=== PATIENT | female | born 1990 | race African-American/Black ===

== ENCOUNTER 2018-11-09 17:36 | Emergency (ER) | payer SELFPAY ==
[2018-11-09] MEDS ORDERED: LIDOCAINE 1% INJ-PF (10 MG/ML) 30 ML SDV INJ ONE (18:22)
--- NOTE | 2018-11-09 18:25 | ER Document Report ---
ED Medical Screen (RME) - General Chief Complaint: Insect Bite Stated Complaint: POSSIBLE BUG BITE Time Seen by Provider: 11/09/18 18:19 TRAVEL OUTSIDE OF THE [place] IN LAST 30 DAYS: No - HPI Notes: 11/09/18 18:23 Patient is a 28-year-old female with a history of type 2 diabetes who presents emergency department complaining of swollen painful area to the medial posterior proximal thigh that has been present for the past 2 to 3 days. She has not noticed any discharge or witness any insect biting her. She is still eating and drinking without difficulty. She is urinating normally and having normal bowel movements. Denies HAINES, fever, neck pain, URI, CP, SOB, Abd pain. I have treated and performed a rapid initial assessment of this patient. A comprehensive ED assessment and evaluation of the patient, analysis of test results and completion of medical decision making process will be conducted by additional ED providers. PHYSICAL EXAMINATION: GENERAL: Well-appearing, well-nourished and in no acute distress. A&Ox4. Answers questions appropriately. Skin: Prox posteromedial thigh: there is a fluctuant, mildly erythemic area noted with induration and tenderness. No active purulence or streaks. - Related Data Allergies/Adverse Reactions: latex [Latex] Allergy (Verified 11/09/18 17:45) Past Medical History - Social History Chew tobacco use (# tins/day): No Frequency of alcohol use: None Drug Abuse: None Endocrine Medical History: Reports: Hx Diabetes Mellitus Type 2 Renal/ Medical History: Denies: Hx Peritoneal Dialysis - Immunizations Hx Diphtheria, Pertussis, Tetanus Vaccination: No Physical Exam - Vital signs Vitals: Temp Pulse Resp BP Pulse Ox 98.7 F 95 18 139/75 H 96 11/09/18 18:02 11/09/18 18:02 11/09/18 18:02 11/09/18 18:02 11/09/18 18:02 Course - Vital Signs Vital signs: Temp Pulse Resp BP Pulse Ox 98.7 F 95 18 139/75 H 96 11/09/18 18:02 11/09/18 18:02 11/09/18 18:02 11/09/18 18:02 11/09/18 18:02
--- NOTE | 2018-11-09 19:39 | ER Document Report ---
HPI - HPI Patient complains to provider of: Abscess to leg Onset: Other - 3-days Onset/Duration: Worse Pain Level: 5 Context: She complains of abscess to left thigh for the past 3 days. Patient denies any fever. Patient also states that she is diabetic and has not been on anything to manage her diabetes. Patient states that she gets frequent yeast infections and is concerned that this may be attributed to this. Patient states that she is not currently sexually active and does not have any concerns about possible sexually transmitted infection at this time. Associated Symptoms: Other - Abscess to leg, vaginal discharge. denies: Fever Exacerbated by: Denies Relieved by: Denies Similar symptoms previously: Yes Recently seen / treated by doctor: No - ROS ROS below otherwise negative: Yes Systems Reviewed and Negative: Yes All other systems reviewed and negative - CONSTITUTIONAL Constitutional: DENIES: Fever - EENT EENT: DENIES: Sore Throat - RESPIRATORY Respiratory: DENIES: Trouble Breathing, Coughing - GASTROINTESTINAL Gastrointestinal: DENIES: Abdominal Pain, Nausea - URINARY Urinary: DENIES: Dysuria - REPRODUCTIVE Reproductive: REPORTS: Abnormal bleeding / discharge. DENIES: : - MUSCULOSKELETAL Musculoskeletal: REPORTS: Extremity pain - Left thigh - DERM Skin Color: Normal Notes: Abscess to left thigh <LUIS E SERNA - Last Filed: 11/09/18 21:26> <REI HIGGINS - Last Filed: 11/09/18 23:41> - HPI Time Seen by Provider: 11/09/18 18:19 Past Medical History - General Information source: Patient - Social History Smoking Status: Never Smoker Chew tobacco use (# tins/day): No Frequency of alcohol use: None Drug Abuse: None Occupation: [employer] Lives with: Family Family History: Reviewed & Not Pertinent Patient has suicidal ideation: No Patient has homicidal ideation: No Endocrine Medical History: Reports: Hx Diabetes Mellitus Type 2 Renal/ Medical History: Denies: Hx Peritoneal Dialysis Surgical Hx: Negative - Immunizations Hx Diphtheria, Pertussis, Tetanus Vaccination: No <LUIS E SERNA - Last Filed: 11/09/18 21:26> Vertical Provider Document - CONSTITUTIONAL Agree With Documented VS: Yes Exam Limitations: No Limitations General Appearance: WD/WN, No Apparent Distress - INFECTION CONTROL TRAVEL OUTSIDE OF THE [place] IN LAST 30 DAYS: No - HEENT HEENT: Atraumatic, Normocephalic - NECK Neck: Normal Inspection - RESPIRATORY Respiratory: No Respiratory Distress - BACK Back: Normal Inspection - MUSCULOSKELETAL/EXTREMETIES Musculoskeletal/Extremeties: [place] - NEURO Level of Consciousness: Awake, Alert, Appropriate Motor/Sensory: No Motor Deficit - DERM Integumentary: Warm, Dry, Abscess - Abscess to medial left thigh. <LUIS E SERNA - Last Filed: 11/09/18 21:26> Course - Re-evaluation Re-evalutation: 11/09/18 20:58 Report and handoff given to Sue MARTINEZ 11/09/18 21:26 - Vital Signs Vital signs: Temp Pulse Resp BP Pulse Ox 98.7 F 95 18 139/75 H 96 11/09/18 18:02 11/09/18 18:02 11/09/18 18:02 11/09/18 18:02 11/09/18 18:02 - Laboratory Result Diagrams: 11/09/18 20:10 11/09/18 20:10 <LUIS E SERNA - Last Filed: 11/09/18 21:26> - Re-evaluation Re-evalutation: 11/09/18 23:37 I assumed patient care from Justa Eleazar. She indicated that we were monitoring her blood sugars and labs to make sure that she was doing well with the fluid flush and the insulin subcu. Current Accu-Chek is 269 so indicating patient is going down from the 500 she started it. Patient also had an I&D drainage we will place her on Bactrim for that she had a yeast infection were placed on Diflucan for that she had bacterial vaginosis we are placing her on Flagyl for that and I am putting her on metformin starting out slow and then tapering up to thousand milligrams twice a day. This will give her a chance to follow-up with her primary care provider. I have had a long talk with her in front of her family about monitoring her diet and how to adjust it. Hopefully she will have listen to us. I have instructed her to come back if it does not appear to be healing well. And to use warm moist compresses. - Vital Signs Vital signs: Temp Pulse Resp BP Pulse Ox 98.7 F 95 18 139/75 H 96 11/09/18 18:02 11/09/18 18:02 11/09/18 18:02 11/09/18 18:02 11/09/18 18:02 - Laboratory Result Diagrams: 11/09/18 20:10 11/09/18 20:10 Laboratory results interpreted by me: 11/09/18 11/09/18 11/09/18 19:52 20:10 20:10 MCH 26.6 L RDW 14.6 H Sodium 133.2 L Chloride 92 L Glucose 515 H* POC Glucose 466 H* Alkaline Phosphatase 149 H Urine Glucose (UA) 11/09/18 21:05 MCH RDW Sodium Chloride Glucose POC Glucose Alkaline Phosphatase Urine Glucose (UA) >=500 H <REI HIGGINS - Last Filed: 11/09/18 23:41> Procedures - Incision and Drainage Left Thigh Type: Simple Anesthetic type: 1% Lidocaine Blade size: 11 I&D procedure: Betadine prep applied Incision Method: Incision made by scalpel Amount/type of drainage: small amount of purulent drainage <LUIS E SERNA - Last Filed: 11/09/18 21:26> Discharge <LUIS E SERNA - Last Filed: 11/09/18 21:26> <REI HIGGINS - Last Filed: 11/09/18 23:41> - Discharge Clinical Impression: Abscess, Encounter for incision and drainage procedure, Yeast vaginitis, Bacterial vaginosis, Hyperglycemia Condition: Stable Disposition: HOME, SELF-CARE Instructions: Abscess ([facility]), Post Incision and Drainage, Trimethoprim-Sulfa ([facility]), Vaginal Yeast Infection ([facility]) Additional Instructions: Home and rest. Medication as prescribed. As we discussed you will need to follow-up with a primary care provider and the [facility] may be 1 of those that may help you out. I am giving the information to them listed in the brochure. It is important to monitor your diet very closely. Is also important that you use warm moist compresses 3-4 times a day on the abscess that she opened up for you. This is a wash rag as warm as you can stand it from the sink please do not put in a microwave. Highly suggest also that you monitor your diet watch the input that you do have with sugary substances like sodas and cakes and cookies etc. Start monitoring your diet and watch what you eat and you should help with your diabetes. As of informed you this is a very serious diagnosis now that you have reached the 500 [address] and is something that you must with all consciousness make an effort to fight. This is a deadly disease unless you find it. You may always return to ER for recheck if you need to. Prescriptions: Fluconazole [Diflucan] 150 mg PO ASDIR PRN #2 tablet PRN Reason: Metformin HCl [Glucophage 500 mg Tablet] 500 mg PO ASDIR PRN #100 tablet PRN Reason: Metronidazole [Flagyl 500 mg Tablet] 500 mg PO BID 7 Days #14 tablet Sulfamethoxazole/Trimethoprim [Bactrim Ds Tablet] 1 each PO BID #20 tablet Forms: Elevated Blood Pressure, Smoking Cessation Education, Return to School, Return to Work Referrals: [facility] [NO LOCAL MD] - Follow up as needed
[2018-11-09] MEDS ORDERED: NORMAL SALINE 1000 ML 2,000 ML IV ONE (19:56)
[2018-11-09 20:16] LABS: BACTERIA (WET MOUNT) 4+ BACTERIA SEEN; EPITHELIALS (WET MOUNT) 3+ EPITHELIALS SEEN; T.VAGINALIS (WET MOUNT) NO TRICHOMONAS SEEN; WBCS (WET MOUNT) 3+ WBCS SEEN; YEAST (WET MOUNT) BUDDING YEAST SEEN
[2018-11-09 20:40] LABS: ABSOLUTE EOSINOPHILS # (AUTO) 0.1 10^3/uL (0.0-0.6); ABSOLUTE MONOCYTES (AUTO) 0.4 10^3/uL (0.1-1.4); ABSOLUTE NEUT (AUTO) 4.2 10^3/uL (1.7-8.2); BASOPHILS % (AUTO) 0.4 % (0-2); EOSINOPHILS % (AUTO) 1.1 % (0-6); HEMATOCRIT 41.6 % (36.0-47.0); HEMOGLOBIN 13.5 g/dL (12.0-15.5); LYMPHOCYTES % (AUTO) 17.4 % (13-45); MEAN CORPUSCULAR HEMOGLOBIN 26.6 pg (27.0-33.4); MEAN CORPUSCULAR HGB CONC 32.6 g/dL (32.0-36.0); MEAN CORPUSCULAR VOLUME 82 fl (80-97); MONOCYTES % (AUTO) 7.4 % (3-13); PLATELET COUNT 229 10^3/uL (150-450); RED BLOOD COUNT 5.09 10^6/uL (3.72-5.28); RED CELL DISTRIBUTION WIDTH 14.6 % (11.5-14.0); SEGMENTED NEUTROPHILS % (AUTO) 73.7 % (42-78); TOTAL CELLS COUNTED % (AUTO) 100 %; WHITE BLOOD COUNT 5.7 10^3/uL (4.0-10.5)
[2018-11-09 20:50] LABS: ALANINE AMINOTRANSFERASE 25 U/L (9-52); ALKALINE PHOSPHATASE 149 U/L (38-126); ANION GAP 11 (5-19); ASPARTATE AMINO TRANSFERASE 14 U/L (14-36); BILIRUBIN,DIRECT 0.2 mg/dL (0.0-0.4); BILIRUBIN,TOTAL 0.4 mg/dL (0.2-1.3); BLOOD UREA NITROGEN 10 mg/dL (7-20); CALCIUM 10.1 mg/dL (8.4-10.2); CARBON DIOXIDE 30 mmol/L (22-30); CHLORIDE 92 mmol/L (98-107); POTASSIUM 4.7 mmol/L (3.6-5.0); SODIUM 133.2 mmol/L (137-145); TOTAL PROTEIN 6.9 g/dL (6.3-8.2)
[2018-11-09 21:05] LABS: GLUCOSE 515 mg/dL (75-110)
[2018-11-09 21:20] LABS: VENOUS BLOOD HCO3 29.5 mmol/L (20-32); VENOUS BLOOD PCO2 52.6 mmHg (35-63); VENOUS BLOOD PH 7.37 (7.30-7.42)
[2018-11-09] MEDS ORDERED: FLUCONAZOLE 100 MG TABLET PO ONE (21:24)
[2018-11-09] MEDS ORDERED: INSULIN REG, HUMAN 100 UNIT/ML 3 ML VIAL (PYX) SUBCUT ONE (21:24)
[2018-11-09 21:35] LABS: APPEARANCE,URINE CLEAR; BILIRUBIN,URINE NEGATIVE (NEGATIVE); COLOR,URINE STRAW; GLUCOSE, URINE >=500 mg/dL (NEGATIVE); KETONES,URINE NEGATIVE (NEGATIVE); LEUKOCYTE ESTERASE,URINE NEGATIVE (NEGATIVE); NITRITE,URINE NEGATIVE (NEGATIVE); PROTEIN,URINE NEGATIVE (NEGATIVE); URINE SPECIFIC GRAVITY 1.031; UROBILINOGEN,URINE NEGATIVE mg/dL (<2.0)
[2018-11-10 00:19] VITALS: BP 117/79
== END 2018-11-10 00:21 | disposition home or self-care (01) ==
LOC: ER 17:36
DX: L02.416 Cutaneous abscess of left lower limb (principal); N76.0 Acute vaginitis; B96.89 Other specified bacterial agents as the cause of diseases classified elsewhere; B37.3 Candidiasis of vulva and vagina; E11.65 Type 2 diabetes mellitus with hyperglycemia
CPT/HCPCS: 99284; 96360; 96361; 36415; 87210; 82962; 84703; 85025; 80053; 81001; 82803; 10060; J1815; J7030